=== PATIENT | male | born 1990 | race Caucasian/White ===

== ENCOUNTER 2020-05-23 10:08 | Outpatient (REF) | payer OTHER, SELFPAY | END 2020-05-23 10:09 | disposition home or self-care (01) | LOC: HO.LAB 10:08 | PROVIDERS: Visit Provider Internal Medicine | DX: Z20.822 Contact with and (suspected) exposure to COVID-19 (principal) | CPT/HCPCS: 36415; C9803; U0003 ==

== ENCOUNTER 2020-10-12 05:58 | Emergency (ER) | payer OTHER, SELFPAY ==
[2020-10-12 06:41] VITALS: BP 145/60; PULSE 59; RESP 16; TEMP 36.7; O2SAT 100; BMI 30.7
--- NOTE | 2020-10-12 06:51 | ED.MALEGU ---
HPI - Male Genitourinary General Chief complaint: Urogenital-Male Stated complaint: pinching sensation in left testicle Time Seen by Provider: 10/12/20 06:48 Source: patient Mode of arrival: ambulatory Limitations: no limitations History of Present Illness Complaint: testicle pain Onset (ago): day(s) (2) Duration: intermittent Location: left testicle Severity: mild Quality: other (pinching) Relieving factors: none Exacerbating factors: none Context: new sexual partner Associated symptoms: Reports denies other symptoms Related Data Previous Rx's Medication Instructions Recorded doxycycline hyclate 100 mg PO BID 10 Days #20 cap 10/12/20 Allergies Allergy/AdvReac Type Severity Reaction Status Date / Time No Known Allergies Allergy Verified 10/12/20 06:45 [No Known Allergies*] Review of Systems Review of Systems: Constitutional : No Fever, No Chills, Cardiovascular : No Chest Pain, No SOB Respiratory : No Dyspnea, no cough Gastrointestinal : No abdominal pain, no nausea, no vomiting, no diarrhea Musculoskeletal : No Joint Swelling : no dysuria, no discharge, pos testicle pain Skin : No rash, no skin laceration Neuro : No Weakness, No Numbness PMFSH Past Medical History Attestation statement: The following information was validated with the patient. Medical History No known health problems Surgical History (Updated 10/12/20 @ 06:43 by Rebecca Castellanos) No pertinent past surgical history Social History Social History (Updated 10/12/20 @ 07:00 by Puja Ventura DO) Patient Tobacco Use Status: Never used Tobacco Use of substances other than those prescribed or required for medical reasons: No Physical Exam Vital Signs: Vital Signs: Last Vital Signs Temp 98.1 F 10/12/20 06:41 Pulse 59 10/12/20 06:41 Resp 16 10/12/20 06:41 BP 145/60 H 10/12/20 06:41 Pulse Ox 100 10/12/20 06:41 Body Mass Index 30.7 Appearance: Alert. Oriented X3. No acute distress. Eyes: Pupils equal, round and reactive to light. ENT: Pharynx normal. Neck: Normal inspection. Neck supple. CVS: Normal heart rate and rhythm. Pulses normal. Respiratory: No respiratory distress. Breath sounds normal. Abdomen: Soft and nontender. : L testicle normal in appearance no mass, scrotum normal, penis normal, L epididymis mild ttp to palpation no swelling noted Skin: Skin warm and dry. Normal skin color. Normal skin turgor. Extremities: No lower extremity edema. No calf ttp Neuro: Oriented X 3. No motor deficit. No sensory deficit. MDM - Male Genitourinary MDM Narrative Medical decision making narrative: 30 yo male otherwise healthy here with L testicular ttp over epididymis no other complaints no penile rash or discharge, scrotum is normal no masses felt, very minimal pain, had unprotected sex recently will treat as STI and discussed safe sex practices, exam not consistent with torsion Discharge Plan Discharge Clinical Impression: Epididymitis Patient Disposition: Home, Self-Care Instructions: Sexually Transmitted Diseases (ED), Epididymitis (ED) Additional Instructions: return to ED for any worsening symptoms or concerns COMPLETE ANTIBIOTICS, PRACTICE SAFE SEX NOTIFY YOUR PARTNERS Prescriptions: New doxycycline hyclate 100 mg capsule 100 mg PO BID 10 Days Qty: 20 RF: 0 Stand Alone Forms: Work/School Release
[2020-10-12] MEDS: cefTRIAXone sodium 500 MG, Lidocaine HCl 1 % MPF 1 ML IM (07:14)
[2020-10-12 09:39] LABS: CT PCR NOT DETECTED (Not Detect.); NG PCR NOT DETECTED (Not Detect.)
== END 2020-10-12 07:18 | disposition home or self-care (01) ==
PROVIDERS: Emergency Provider Emergency Medicine
DX: N45.1 Epididymitis (principal)
CPT/HCPCS: 87491; 87591; 96374; 99283; 99284; J0696

== ENCOUNTER → 2021-02-08 14:26 | Outpatient (BNVA) | payer OTHER, SELFPAY | PROVIDERS: Visit Provider Urology | DX: Z30.2 Encounter for sterilization (principal); F41.8 Other specified anxiety disorders; F17.210 Nicotine dependence, cigarettes, uncomplicated | CPT/HCPCS: 99202 ==

== ENCOUNTER → 2021-05-31 11:25 | Outpatient (BNVA) | payer OTHER, SELFPAY | PROVIDERS: Visit Provider Urology | DX: Z30.2 Encounter for sterilization (principal); F41.8 Other specified anxiety disorders | CPT/HCPCS: 55250 ==

== ENCOUNTER → 2021-08-29 15:07 | Outpatient (BNVA) | payer OTHER, SELFPAY | PROVIDERS: Visit Provider Urology | DX: Z30.8 Encounter for other contraceptive management (principal); Z98.52 Vasectomy status | CPT/HCPCS: 99212 ==